=== PATIENT | male | born 1985 | race Two or more races ===

== ENCOUNTER 2021-08-14 13:22 | Emergency (ER) | payer SELFPAY ==
[~2021-08-14] VITALS: Ht 162.6 cm; Wt 95.4 kg
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
[2021-08-14] MEDS ORDERED: KETOROLAC 60 MG/2 ML VIAL. IM ONE (14:30)
[2021-08-14] MEDS ORDERED: ORPHENADRINE CITRATE 60 MG/2 ML VIAL. IM ONE (14:30)
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
[2021-08-14] MEDS ORDERED: CYCL5TAB PO (15:09)
[2021-08-14 15:23] VITALS: BP 133/75
== END 2021-08-14 15:24 | disposition home or self-care (01) ==
LOC: ER 13:22
DX: M54.50 Low back pain, unspecified (principal); G89.11 Acute pain due to trauma; V49.49XA Driver injured in collision with other motor vehicles in traffic accident, initial encounter; Y93.89 Activity, other specified; Y92.488 Other paved roadways as the place of occurrence of the external cause; Y99.8 Other external cause status
CPT/HCPCS: 70450; 72072; 72100; 72125; 96372; 99284; J1885; J2360